=== PATIENT | male | born 1985 | race Hispanic/Latino ===

== ENCOUNTER 2018-09-28 11:33 | Emergency (ER) | payer OTHER ==
[2018-09-28 11:40] VITALS: O2SAT 98
[2018-09-28 11:41] VITALS: BMI 30.9
[2018-09-28] MEDS ORDERED: Oxycodone/Acetaminophen 5/325 mg Tab PO ONE (12:18)
[2018-09-28] MEDS ORDERED: Povidone Iodine Oint 10% Foilpak UD TOP ONE (12:18)
[2018-09-28] MEDS ORDERED: Povidone Iodine Topical 10% Sol ONE (12:30)
[2018-09-28] MEDS ORDERED: Oxycodone/Acetaminophen 5/325 mg Tab ONE ×2 (12:30→12:55)
[2018-09-28] MEDS ORDERED: Povidone Iodine Oint 10% Foilpak UD ONE (12:36)
[2018-09-28] MEDS ORDERED: Lidocaine/Epi 1% 1:100000 20 ML IJ STA (12:42)
[2018-09-28] MEDS ORDERED: POVIDONE IODINE TP ONE (12:45)
[2018-09-28] MEDS ORDERED: Tdap Vaccine 0.5 ml Vial (10-64 yrs) IM ONE ×2 (12:48→12:56)
[2018-09-28 12:52] LABS: BASO # 0.1 K/uL (0.0-0.2); BASO % 0.9 % (0.0-2.0); EOS # 0.1 K/uL (0.0-0.7); EOS % 0.7 % (0.0-4.0); HEMOGLOBIN 14.6 g/dL (12.0-18.0); LYMPH # 2.5 K/uL (1.0-4.3); LYMPH % 29.8 % (20.0-40.0); MEAN CELL VOLUME 87.3 fl (80.0-94.0); MEAN CORPUSCULAR HEMOGLOBIN 30.2 pg (27.0-31.0); MEAN CORPUSCULAR HGB CONC 34.6 g/dL (33.0-37.0); MEAN PLATELET VOLUME 9.4 fl (7.2-11.7); MONO # 0.9 K/uL (0.0-0.8); MONO % 10.6 % (0.0-10.0); NEUT # 4.8 K/uL (1.8-7.0); NRBC % 0.1 % (0.0-0.0); RBC 4.82 Mil/uL (4.40-5.90); RED CELL DISTRIBUTION WIDTH 13.5 % (11.5-14.5); WHITE BLOOD COUNT 8.3 K/uL (4.8-10.8)
[2018-09-28] MEDS ORDERED: Lidocaine 1% w Epi 1:100,000 Inj ONE (12:55)
[2018-09-28 13:19] LABS: ALB/GLOB RATIO 1.6 (1.0-2.1); ALBUMIN 4.8 g/dL (3.5-5.0); ALT/SGPT 53 U/L (21-72); AST/SGOT 39 U/L (17-59); BLOOD UREA NITROGEN 18 mg/dl (9-20); CALCIUM 9.8 mg/dL (8.4-10.2); GFR NON-AFRICAN AMERICAN > 60
--- NOTE | 2018-09-28 13:32 | ED PDOC ---
HPI: Trauma/Fall - HPI Time Seen by Provider: 09/28/18 11:44 Chief Complaint (Nursing): Trauma Chief Complaint (Provider): head trauma History Per: Patient History/Exam Limitations: no limitations Associated Symptoms: Dizziness Additional Complaint(s): 33 y/o Male with hx of trauma 10yrs ago now requiring self catheterization for urine who presents after dropping drill on his head while at work. Pt states that he was drilling metal when it got stuck and he lost control striking him in the head. He denies LOC or fall but states that he has a severe Right sided head ache, dizziness, visual blurriness, and mild nausea. Further admits to having some dysuria for the past 2 weeks with urinary frequency. Denies fever, chills. Past Medical History Reviewed: Historical Data, Nursing Documentation, Vital Signs Vital Signs: Last Vital Signs Temp 98.2 F 09/28/18 11:39 Pulse 90 09/28/18 11:39 Resp 18 09/28/18 11:39 BP 148/91 H 09/28/18 11:39 Pulse Ox 98 09/28/18 11:39 Primary Care Provider: FAMILY PROVIDER,NO - Medical History PMH: HTN Other PMH: urinary retention requiring straight cath since accident 10yrs ago - Surgical History Surgical History: Back Surgery Other surgeries: lower extremity ortho surgeries - Family History Family History: States: Unknown Family Hx - Home Medications Home Medications: Ambulatory Orders Medication Instructions Recorded Ibuprofen [Motrin Tab] 600 mg PO Q6 PRN 7 Days tab 09/28/18 - Allergies Allergies/Adverse Reactions: Allergies Allergy/AdvReac Type Severity Reaction Status Date / Time No Known Allergies Allergy Verified 09/28/18 11:48 Review of Systems Neurological: Positive for: Headache, Dizziness. Negative for: Incoordination, Change in Speech, Confusion Physical Exam - Reviewed Nursing Documentation Reviewed: Yes Vital Signs Reviewed: Yes - Physical Exam Appears: Positive for: Uncomfortable Eye Exam: Positive for: PERRL, Other (approx 2cm irregular laceration superior and lateral to Right eyebrow). Negative for: EOMI (unable to gaze medially simultaneously), Nystagmus Cardiovascular/Chest: Positive for: Regular Rate, Rhythm Respiratory: Positive for: Normal Breath Sounds Neurological/Psych: Positive for: Awake, Alert, Symmetric/Intact Strength (in b/l upper and lower extremities), Oriented, Gait (steady), Cerebellar Tests (able to perform finger to nose), ruby engineer II-XII (smile is asymmetric with left elevating more than right, ). Negative for: Motor/Sensory Deficits (sensation to light touch intact in B/L upper and lower extremities as well as face. ), Facial Droop - Laboratory Results Result Diagrams: 09/28/18 12:44 09/28/18 12:44 Lab Results: Total Bilirubin 0.4 mg/dl (0.2-1.3) 09/28/18 12:44 AST 39 U/L (17-59) 09/28/18 12:44 ALT 53 U/L (21-72) 09/28/18 12:44 Alkaline Phosphatase 66 U/L (38-126) 09/28/18 12:44 Total Protein 7.8 G/DL (6.3-8.2) 09/28/18 12:44 Albumin 4.8 g/dL (3.5-5.0) 09/28/18 12:44 Globulin 3.0 gm/dL (2.2-3.9) 09/28/18 12:44 Albumin/Globulin Ratio 1.6 (1.0-2.1) 09/28/18 12:44 - ECG O2 Sat by Pulse Oximetry: 98 Medical Decision Making Medical Decision Making: CBC, CMP Urine dip, urine culture Head CT w/o contrast Maxillofacial CT w/o contrast Percocet 5/325mg PO x 1 Tetanus vaccine Laceration repair (see procedure note) labs wnl Urine dip: LE and nitrate negative, blood negative. Head CT w/o contrast: FINDINGS: HEMORRHAGE: No intracranial hemorrhage. BRAIN: Queen-white matter differentiation is preserved. There is no mass, mass effect or abnormal extra-axial fluid collection. There is no territorial infarction. The midline sagittal structures are normal. VENTRICLES: The ventricles are normal in size, shape and configuration. CALVARIUM: There is no calvarial fracture or extracranial soft tissue swelling. PARANASAL SINUSES: Predominantly clear. MASTOID AIR CELLS: Predominantly clear. OTHER FINDINGS: None. IMPRESSION: No acute intracranial abnormality. Maxillofacial CT w/o contrast: FINDINGS: NASAL BONES: The nasal bones are intact. No acute fracture. ORBITS: No acute orbital fracture. The globes are symmetric without evidence for radiopaque foreign body, orbital emphysema or lens dislocation. PARANASAL SINUSES/ MASTOIDS: Predominantly clear. There are bilateral middle turbinate juarez bullosa. MAXILLA: No acute maxillofacial fracture. MANDIBLE/ TEMPOROMANDIBULAR JOINTS: No acute fracture or dislocation. SKULL BASE: Unremarkable. TEMPORAL BONES: Middle ears and mastoid grossly unremarkable. OTHER FINDINGS: None. IMPRESSION: No acute nasal bone, orbital or maxillofacial fracture. No radiopaque foreign body. Procedures - Laceration/Wound Repair Right Head Wound Length (cm): 2 (Right eyebrow) Wound's Depth, Shape: superficial, irregular Wound Explored: no foreign body removed Irrigated w/ Saline (ccs): 250 Betadine Prep?: Yes Anesthesia: Lidocaine w/ Epi Volume Anesthetic (ccs): 3 Wound Repaired With: Sutures Suture Size/Type: 6:0, proline Number of Sutures: 6 Layer Closure?: No Wound Complexity: Simple Sterile Dressing Applied?: Yes Disposition - Clinical Impression Clinical Impression: Eyebrow laceration, Head trauma - Patient ED Disposition Is Patient to be Admitted: No Counseled Patient/Family Regarding: Studies Performed, Diagnosis, Need For Followup, Rx Given - Disposition Referrals: [facility] [place] [facility] [Outside] Disposition: Routine/Home Disposition Time: 15:25 Condition: STABLE Additional Instructions: Follow up with primary care doctor for routine check. Take Tylenol or Ibuprofen for pain. REturn to ER if you develop dizziness, worsening headache, vomiting. YOu have [address] that will need to be removed in 5 - 7 days. Keep dressing over sutures for the next 24hrs and then wash gently with soap and water and then leave open to the air thereafter. Cover when at work. Prescriptions: Ibuprofen [Motrin Tab] 600 mg PO Q6 PRN 7 Days tab PRN Reason: Pain, Moderate (4-7) Instructions: Laceration Repair With Stitches (DC), Minor Head Injury (DC), Head Injury Observation (DC) Forms: [employer] (E[place]ian), [facility] School/Work Excuse Print Language: SINHALA
--- NOTE | 2018-09-28 14:05 | CT ---
Date of service: 09/28/2018 PROCEDURE: CT HEAD WITHOUT CONTRAST. HISTORY: head trauma, + dizziness, KELLEY and nausea COMPARISON: 04/15/2015. TECHNIQUE: Axial computed tomography images were obtained through the head/brain without intravenous contrast. Radiation dose: Total exam DLP = 822.27 mGy-cm. This CT exam was performed using one or more of the following dose reduction techniques: Automated exposure control, adjustment of the mA and/or kV according to patient size, and/or use of iterative reconstruction technique. FINDINGS: HEMORRHAGE: No intracranial hemorrhage. BRAIN: Queen-white matter differentiation is preserved. There is no mass, mass effect or abnormal extra-axial fluid collection. There is no territorial infarction. The midline sagittal structures are normal. VENTRICLES: The ventricles are normal in size, shape and configuration. CALVARIUM: There is no calvarial fracture or extracranial soft tissue swelling. PARANASAL SINUSES: Predominantly clear. MASTOID AIR CELLS: Predominantly clear. OTHER FINDINGS: None. IMPRESSION: No acute intracranial abnormality.
--- NOTE | 2018-09-28 15:02 | CT ---
Date of service: 09/28/2018 PROCEDURE: CT MAXILLOFACIAL BONES WITHOUT CONTRAST HISTORY: facial trauma, evaluate for fx, ?metal fragments COMPARISON: For TECHNIQUE: Contiguous axial CT images of the maxillofacial bones were obtained. Coronal and sagittal reformats were generated. Radiation dose: Total exam DLP = 788.29 mGy-cm. This CT exam was performed using one or more of the following dose reduction techniques: Automated exposure control, adjustment of the mA and/or kV according to patient size, and/or use of iterative reconstruction technique. FINDINGS: NASAL BONES: The nasal bones are intact. No acute fracture. ORBITS: No acute orbital fracture. The globes are symmetric without evidence for radiopaque foreign body, orbital emphysema or lens dislocation. PARANASAL SINUSES/ MASTOIDS: Predominantly clear. There are bilateral middle turbinate juarez bullosa. MAXILLA: No acute maxillofacial fracture. MANDIBLE/ TEMPOROMANDIBULAR JOINTS: No acute fracture or dislocation. SKULL BASE: Unremarkable. TEMPORAL BONES: Middle ears and mastoid grossly unremarkable. OTHER FINDINGS: None. IMPRESSION: No acute nasal bone, orbital or maxillofacial fracture. No radiopaque foreign body.
[2018-09-28 16:00] VITALS: BP 110/64; PULSE 67; RESP 17; TEMP 98.7
== END 2018-09-28 15:49 | disposition home or self-care (01) ==
LOC: H.ER 11:33
DX: S01.81XA Laceration without foreign body of other part of head, initial encounter (principal); S09.90XA Unspecified injury of head, initial encounter; W22.8XXA Striking against or struck by other objects, initial encounter; Y99.0 Civilian activity done for income or pay; I10 Essential (primary) hypertension